=== PATIENT | male | born 1970 | race Two or more races ===

== ENCOUNTER 2016-11-08 06:28 | Emergency (ER) | payer OTHER ==
[2016-11-08 06:38] VITALS: BP 116/81; PULSE 84; TEMP 99.8
--- NOTE | 2016-11-08 07:36 | PDOC ---
History of Present Illness <ShivferminjosueRamu - Last Filed: 11/08/16 07:35> - General History Source: Patient Exam Limitations: No Limitations - History of Present Illness Initial Comments: 11/08/16 07:40 The patient is a 46-year-old man, accompanied by spouse, with no significant past medical history who presents to the emergency department via walk-in for further evaluation of persistent cold-like symptoms for the past 2-3 days. Patient reports that he has experienced an intermittent cough with associated nasal congestion and a headache. No fever, chills generalized weakness. No rhinorrhea, ear pain. No shortness of breath, palpitations, headache. No abdominal pain, nausea, vomiting, diarrhea. <Sandra Alvarado - Last Filed: 11/08/16 08:06> - General Chief Complaint: Cold Symptoms Stated Complaint: WEAKNESS Past History - Past Medical History Other medical history: denies - Immunization History Immunization Up to Date: Yes - Psycho/Social/Smoking Cessation Hx Anxiety: No Suicidal Ideation: No Smoking History: Never smoked Have you smoked in the past 12 months: No Number of Cigarettes Smoked Daily: 0 Cigars Per Day: 0 Information on smoking cessation initiated: No Hx Alcohol Use: No Drug/Substance Use Hx: No Substance Use Type: Alcohol <Ramu Francis - Last Filed: 11/08/16 07:35> <Sandra Alvarado - Last Filed: 11/08/16 08:06> - Past Medical History Allergies/Adverse Reactions: Allergies Allergy/AdvReac Type Severity Reaction Status Date / Time No Known Allergies Allergy Verified 01/31/16 07:31 Home Medications: Ambulatory Orders Ibuprofen [Motrin -] 600 mg PO QID #28 tablet 01/31/16 Oxycodone HCl/Acetaminophen [Percocet 5-325 mg Tablet] 1 - 2 tab PO Q6H PRN #20 tablet MDD 8 01/31/16 Amoxicillin - [Amoxicillin 875mg Tablet -] 875 mg PO BID #30 tablet 11/08/16 Review of Systems - Review of Systems Able to Perform ROS?: Yes Comments:: 11/08/16 07:41 GENERAL/CONSTITUTIONAL: No fever or chills. No weakness. HEAD, EYES, EARS, NOSE AND THROAT: Yes: +Nasal congestion. No change in vision. No ear pain or discharge. No sore throat. CARDIOVASCULAR: No chest pain or shortness of breath. RESPIRATORY: No cough, wheezing, or hemoptysis. GASTROINTESTINAL: No nausea, vomiting, diarrhea or constipation. GENITOURINARY: No dysuria, frequency, or change in urination. MUSCULOSKELETAL: No joint or muscle swelling or pain. No neck or back pain. SKIN: No rash NEUROLOGIC: Yes: +Headache. No vertigo, loss of consciousness, or change in strength/sensation. ENDOCRINE: No increased thirst. No abnormal weight change. HEMATOLOGIC/LYMPHATIC: No anemia, easy bleeding, or history of blood clots. ALLERGIC/IMMUNOLOGIC: No hives or skin allergy. <Sandra Alvarado - Last Filed: 11/08/16 08:06> *Physical Exam - Vital Signs Last Vital Signs Temp Pulse Resp BP Pulse Ox 99.8 F H 84 20 116/81 98 11/08/16 06:35 11/08/16 06:35 11/08/16 06:35 11/08/16 06:35 11/08/16 06:35 <Ramu Franics - Last Filed: 11/08/16 07:35> - Vital Signs Last Vital Signs Temp Pulse Resp BP Pulse Ox 99.8 F H 84 20 116/81 98 11/08/16 06:35 11/08/16 06:35 11/08/16 06:35 11/08/16 06:35 11/08/16 06:35 - Physical Exam Comments: 11/08/16 07:42 GENERAL: Awake, alert, and fully oriented, in no acute distress HEAD: No signs of trauma EYES: PERRLA, EOMI, sclera anicteric, conjunctiva clear ENT: Auricles normal inspection, hearing grossly normal, post nasal drip, oropharynx clear without exudates. Moist mucosa NECK: Normal ROM, supple, no lymphadenopathy, JVD, or masses LUNGS: Breath sounds equal, clear to auscultation bilaterally. No wheezes, and no crackles HEART: Regular rate and rhythm, normal S1 and S2, no murmurs, rubs or gallops ABDOMEN: Soft, nontender, normoactive bowel sounds. No guarding, no rebound. No masses EXTREMITIES: Normal range of motion, no edema. No clubbing or cyanosis. No cords, erythema, or tenderness NEUROLOGICAL: Cranial nerves II through XII grossly intact. Normal speech <Sandra Alvarado - Last Filed: 11/08/16 08:06> *DC/Admit/Observation/Transfer <Ramu Francis - Last Filed: 11/08/16 07:35> - Attestations Scribe Attestion: 11/08/16 07:42 Documentation prepared by Snadra Alvarado, acting as durable medical equipment technician for Ramu Francis MD. <Sandra Alvarado - Last Filed: 11/08/16 08:06> Diagnosis at time of Disposition: Acute sinusitis - Discharge Dispostion Disposition: HOME Condition at time of disposition: Good - Prescriptions Prescriptions: Amoxicillin - [Amoxicillin 875mg Tablet -] 875 mg PO BID #30 tablet - Patient Instructions Printed Discharge Instructions: DI for Sinusitis Additional Instructions: no smoking
== END 2016-11-08 07:54 | disposition home or self-care (01) ==
LOC: JER 06:28
DX: J01.90 Acute sinusitis, unspecified (principal)
CPT/HCPCS: 99282-25

== ENCOUNTER 2017-02-12 14:10 | Emergency (ER) | payer OTHER ==
[2017-02-12 14:24] VITALS: BP 127/75; BMI 27.3
[2017-02-12] MEDS ORDERED: FAMOTIDINE 20 MG/50 ML IVPB 50 ML IVPB ONE ×2 (15:09→15:18)
[2017-02-12] MEDS ORDERED: SODIUM CHLORIDE 1,000 ML IV STA ×2 (15:09→17:08)
[2017-02-12] MEDS ORDERED: ONDANSETRON 4 MG/2 ML VIAL IVPB ONE (15:09)
[2017-02-12] MEDS ORDERED: ONDANSETRON 4 MG/2 ML VIAL ONE (15:18)
[2017-02-12 15:40] LABS: BASOPHIL 0.4 % (0-2.0); EOSINOPHIL 0.3 % (0-4.5); MCH 30.7 pg (25.7-33.7); MCHC 34.8 g/dl (32.0-35.9); MEAN CELL VOLUME 88.2 fl (80-96); MEAN PLT VOLUME 8.5 fl (7.5-11.1); NEUTROPHILS 77.8 % (42.8-82.8); PLATELET COUNT 173 K/MM3 (134-434); RDW 12.2 % (11.9-15.9); WHITE BLOOD COUNT 10.3 K/mm3 (4.0-10.0)
[2017-02-12 16:07] LABS: ALBUMIN 3.5 g/dl (3.4-5.0); ALK PHOS 110 U/L (45-117); ANION GAP 10 (8-16); BILIRUBIN,TOTAL 1.2 mg/dL (0.2-1.0); CALCIUM 8.5 mg/dL (8.5-10.1); CO2 24 mmol/L (21-32); COCKROFT - GAULT 128.16; CREATININE 0.8 mg/dL (0.7-1.3); GLUCOSE,RANDOM 132 mg/dL (74-106); SGOT/AST 36 U/L (15-37); SGPT/ALT 74 U/L (12-78); TOT PROT 7.9 g/dl (6.4-8.2)
--- NOTE | 2017-02-12 17:13 | PDOC ---
History of Present Illness <Neelam Kc - Last Filed: 02/12/17 21:49> - General History Source: Patient Exam Limitations: No Limitations - History of Present Illness Travel History: No Initial Comments: 02/12/17 17:06 46 yr male with 2 days fever, diarrhea body aches. no vomiting. Pt with no sick contacts. Pt works at [employer] <Sue Morse - Last Filed: 02/13/17 07:29> - General Chief Complaint: Diarrhea Stated Complaint: WEANKNESS Time Seen by Provider: 02/12/17 14:46 Past History <Neelam Kc - Last Filed: 02/12/17 21:49> - Past Medical History Other medical history: sinus infection - Family Disease History Comment:: 02/12/17 17:08 none relevant - Immunization History Immunization Up to Date: Yes - Psycho/Social/Smoking Cessation Hx Anxiety: No Suicidal Ideation: No Smoking History: Never smoked Have you smoked in the past 12 months: No Number of Cigarettes Smoked Daily: 0 Cigars Per Day: 0 Information on smoking cessation initiated: No Hx Alcohol Use: No Drug/Substance Use Hx: No Substance Use Type: Alcohol <Sue Morse - Last Filed: 02/13/17 07:29> - Past Medical History Allergies/Adverse Reactions: Allergies Allergy/AdvReac Type Severity Reaction Status Date / Time No Known Allergies Allergy Verified 02/12/17 14:21 Home Medications: Ambulatory Orders Ciprofloxacin [Cipro (Restricted To Id)] 500 mg PO BID #14 tablet 02/12/17 Metronidazole [Flagyl -] 250 mg PO TID #21 tablet 02/12/17 Abd/GI Specific PMHX - Complaint Specific PMHX Colitis: No Diverticulitis: No Gall Bladder Disease: No GERD: No Hepatitis: No Irritable Bowel Synd (IBS): No Pancreatitis: No GI Ulcer Disease: No <Sue Morse - Last Filed: 02/13/17 07:29> Review of Systems - Review of Systems Able to Perform ROS?: Yes Is the patient limited French proficient: No Constitutional: Yes: Symptoms Reported, Fever, Malaise, Weakness HEENTM: No: Symptoms Reported Respiratory: No: Symptoms reported Cardiac (ROS): No: Symptoms Reported ABD/GI: No: Symptoms Reported <Sue Morse - Last Filed: 02/13/17 07:29> *Physical Exam - Vital Signs Last Vital Signs Temp Pulse Resp BP Pulse Ox 99.0 F 91 H 18 127/75 99 02/12/17 21:36 02/12/17 21:36 02/12/17 14:22 02/12/17 14:22 02/12/17 21:36 <Neelam Kc - Last Filed: 02/12/17 21:49> - Vital Signs Last Vital Signs Temp Pulse Resp BP Pulse Ox 98.8 F 100 H 18 127/75 100 02/12/17 14:22 02/12/17 14:22 02/12/17 14:22 02/12/17 14:22 02/12/17 14:22 - Physical Exam General Appearance: Yes: Nourished, Appropriately Dressed, Mild Distress HEENT: positive: EOMI, ISA, Normal ENT Inspection, TMs Normal, Pharynx Normal Neck: positive: Supple. negative: Tender Respiratory/Chest: positive: Lungs Clear, Normal Breath Sounds. negative: Chest Tender Cardiovascular: positive: Regular Rhythm, Regular Rate Gastrointestinal/Abdominal: positive: Tender (generalised ) Male Genitalia: positive: normal genitalia. negative: discharge Rectal Exam: positive: normal rectal tone. negative: melena, hemorrhoids Musculoskeletal: positive: Normal Inspection Extremity: positive: Normal Capillary Refill, Normal Inspection, Normal Range of Motion Integumentary: positive: Normal Color, Dry, Warm Neurologic: positive: Fully Oriented, Alert, Normal Mood/Affect, Normal Response , Motor Strength 5/5 <Sue Morse - Last Filed: 02/13/17 07:29> ED Treatment Course - LABORATORY CBC & Chemistry Diagram: 02/12/17 15:10 02/12/17 15:10 - ADDITIONAL ORDERS Additional order review: Laboratory Results 02/12/17 15:10 Sodium 136 Potassium 3.9 Chloride 102 Carbon Dioxide 24 Anion Gap 10 BUN 9 Creatinine 0.8 Creat Clearance w eGFR > 60 Random Glucose 132 H Calcium 8.5 Total Bilirubin 1.2 H AST 36 ALT 74 Alkaline Phosphatase 110 Total Protein 7.9 Albumin 3.5 02/12/17 15:05 Influenza Types A,B Antigen (PATRICIA) - Final Nasopharyngeal Swab - Final 02/12/17 15:10 RBC 5.23 MCV 88.2 MCHC 34.8 RDW 12.2 MPV 8.5 Neutrophils % 77.8 Lymphocytes % 14.4 Monocytes % 7.1 Eosinophils % 0.3 Basophils % 0.4 - Medications Given in the ED: ED Medications Discontinued Medications Generic Name Dose Route Start Last Admin Trade Name Freq PRN Reason Stop Dose Admin Sodium Chloride 1,000 mls @ 1,000 mls/hr 02/12/17 15:09 02/12/17 15:30 Normal Saline - IV 02/12/17 16:08 1,000 mls/hr ASDIR STA Administration Famotidine/Sodium Chloride 50 mls @ 100 mls/hr 02/12/17 15:09 02/12/17 15:41 Pepcid 20 Mg Premixed Ivpb - IVPB 02/12/17 15:38 100 mls/hr ONCE ONE Administration Sodium Chloride 1,000 mls @ 1,000 mls/hr 02/12/17 17:08 02/12/17 17:15 Normal Saline - IV 02/12/17 18:07 1,000 mls/hr ASDIR STA Administration Ondansetron HCl 4 mg 02/12/17 15:09 02/12/17 15:30 Zofran Injection IVPB 02/12/17 15:10 4 mg ONCE ONE Administration <Neelam Kc - Last Filed: 02/12/17 21:49> - LABORATORY CBC & Chemistry Diagram: 02/12/17 15:10 02/12/17 15:10 - ADDITIONAL ORDERS Additional order review: Laboratory Results 02/12/17 15:10 Sodium 136 Potassium 3.9 Chloride 102 Carbon Dioxide 24 Anion Gap 10 BUN 9 Creatinine 0.8 Creat Clearance w eGFR > 60 Random Glucose 132 H Calcium 8.5 Total Bilirubin 1.2 H AST 36 ALT 74 Alkaline Phosphatase 110 Total Protein 7.9 Albumin 3.5 02/12/17 15:05 Influenza Types A,B Antigen (PATRICIA) - Final Nasopharyngeal Swab - Final 02/12/17 15:10 RBC 5.23 MCV 88.2 MCHC 34.8 RDW 12.2 MPV 8.5 Neutrophils % 77.8 Lymphocytes % 14.4 Monocytes % 7.1 Eosinophils % 0.3 Basophils % 0.4 - Medications Given in the ED: ED Medications Discontinued Medications Generic Name Dose Route Start Last Admin Trade Name Freq PRN Reason Stop Dose Admin Sodium Chloride 1,000 mls @ 1,000 mls/hr 02/12/17 15:09 02/12/17 15:30 Normal Saline - IV 02/12/17 16:08 1,000 mls/hr ASDIR STA Administration Famotidine/Sodium Chloride 50 mls @ 100 mls/hr 02/12/17 15:09 02/12/17 15:41 Pepcid 20 Mg Premixed Ivpb - IVPB 02/12/17 15:38 100 mls/hr ONCE ONE Administration Ondansetron HCl 4 mg 02/12/17 15:09 02/12/17 15:30 Zofran Injection IVPB 02/12/17 15:10 4 mg ONCE ONE Administration <Sue Morse - Last Filed: 02/13/17 07:29> Medical Decision Making - Medical Decision Making 02/12/17 18:45 cc: diarrhea, body aches fatigue, abd pain no vomiting , tender to left lower quadrant will check labs, IVF, ct abd and pelvis r/o diveriticulitus, colitis, IBS, appendicitis 02/12/17 19:13 pt feels better after fluids ct is pending 02/12/17 19:58 signed out to Neelam Kc LITERACY COORDINATOR for continued care . Ct pending results. pt stable at this time. 02/13/17 07:28 <Sue Morse - Last Filed: 02/13/17 07:29> *DC/Admit/Observation/Transfer - Discharge Dispostion Admit: No <Neelam Kc - Last Filed: 02/12/17 21:49> <Sue Morse - Last Filed: 02/13/17 07:29> Diagnosis at time of Disposition: Colitis - Discharge Dispostion Disposition: HOME Condition at time of disposition: Stable - Prescriptions Prescriptions: Ciprofloxacin [Cipro (Restricted To Id)] 500 mg PO BID #14 tablet Metronidazole [Flagyl -] 250 mg PO TID #21 tablet - Referrals Referrals: Crow Rhodes MD [Staff Physician] - - Patient Instructions Printed Discharge Instructions: DI for Colitis Additional Instructions: clear fluids , jello, ice pops, broth Spicy or heavy foods until instructed otherwise then slowly tolerate to dry crackers, dry toast , dry cereal Cipro 500 mg tablets twice a day for one week Continue Flagyl 250 mg tablet 3 times a day for one week follow with the pot washer for follow up next week Return to emergency department for worsened pain, fevers, bloating or problems otherwise call for appointment with - Post Discharge Activity Work/School Note: Back to Work
[2017-02-12 21:38] VITALS: PULSE 91; TEMP 99
== END 2017-02-12 21:54 | disposition home or self-care (01) ==
LOC: JER 14:10 → JERFT 14:10
PROC: 3E0337Z Introduction of Electrolytic and Water Balance Substance into Peripheral Vein, Percutaneous Approach (ICD-10-PCS; principal; 2017-02-12)
PROC: 3E033GC Introduction of Other Therapeutic Substance into Peripheral Vein, Percutaneous Approach (ICD-10-PCS; 2017-02-12)
DX: K52.9 Noninfective gastroenteritis and colitis, unspecified (principal)
CPT/HCPCS: 36415; 74177-TC; 80053; 85025; 87804; 96361; 96365; 96375; 99281-25

== ENCOUNTER 2017-10-21 21:11 | Emergency (ER) | payer OTHER ==
[2017-10-21] MEDS ORDERED: IBUPROFEN 600 MG TABLET (FP) PO ONE ×2 (21:24→22:50)
--- NOTE | 2017-10-21 21:24 | PDOC ---
Rapid Medical Evaluation Chief Complaint: Headache Medical Evaluation: Allergies Allergy/AdvReac Type Severity Reaction Status Date / Time No Known Allergies Allergy Verified 02/12/17 14:21 10/21/17 21:21 I have performed a brief in-person evaluation of this patient. The patient presents with a chief complaint of: "sinus pain" since yesterday, + chills, vomiting, diarrhea, PCP [place] Pertinent physical exam findings: congestion, temp 100.1 I have ordered the following: flu swab The patient will proceed to the ED for further evaluation.
[2017-10-21 21:25] VITALS: BP 136/81; PULSE 91; TEMP 100.1; BMI 29.7
--- NOTE | 2017-10-21 22:49 | PDOC ---
History of Present Illness - General Chief Complaint: Headache Stated Complaint: HEADACHE Time Seen by Provider: 10/21/17 21:25 - History of Present Illness Initial Comments: 10/21/17 23:07 47yo man with no significant PMH who presents with 1 day of sinus pressure, RANDLE, and subjective fevers. Patient had subjective fevers starting last night for which he took Advil and Theraflu this morning. He reports history of sinus infection, last one occurring about 1 year ago. Last antibiotic use was 1 year ago. Denies any vision changes, nausea, vomiting. Reports son was sick with URI symptoms about 1 week ago. No recent travel. No allergies to medications. No past surgeries. Past History - Past Medical History Allergies/Adverse Reactions: Allergies Allergy/AdvReac Type Severity Reaction Status Date / Time No Known Allergies Allergy Verified 10/21/17 21:25 Home Medications: Ambulatory Orders Ciprofloxacin [Cipro (Restricted To Id)] 500 mg PO BID #14 tablet 02/12/17 Metronidazole [Flagyl -] 250 mg PO TID #21 tablet 02/12/17 Azithromycin 250 mg PO DAILY #4 tablet 10/21/17 COPD: No - Immunization History Immunization Up to Date: Yes - Suicide/Smoking/Psychosocial Hx Smoking History: Never smoked Have you smoked in the past 12 months: No Number of Cigarettes Smoked Daily: 0 Cigars Per Day: 0 Information on smoking cessation initiated: No Hx Alcohol Use: No Drug/Substance Use Hx: No Substance Use Type: None *Physical Exam - Vital Signs Last Vital Signs Temp Pulse Resp BP Pulse Ox 100.1 F H 91 H 18 136/81 98 10/21/17 21:22 10/21/17 21:22 10/21/17 21:22 10/21/17 21:22 10/21/17 21:22 - Physical Exam General Appearance: Yes: Nourished, Appropriately Dressed HEENT: positive: EOMI, ISA, TMs Normal, Pharyngeal Erythema (mild), Sinus Tenderness (frontal) Neck: positive: Supple. negative: Lymphadenopathy (R), Lymphadenopathy (L) Respiratory/Chest: positive: Lungs Clear, Normal Breath Sounds Cardiovascular: positive: Regular Rhythm, Regular Rate, S1, S2 Gastrointestinal/Abdominal: positive: Flat, Soft. negative: Distended, Guarding , Tenderness Extremity: positive: Normal Inspection Neurologic: positive: windows support engineer II-XII NML intact, Fully Oriented, Alert ED Treatment Course - ADDITIONAL ORDERS Additional order review: 10/21/17 21:31 Influenza Types A,B Antigen (PATRICIA) - Final Nasopharyngeal Swab - Final Medical Decision Making - Medical Decision Making 10/21/17 23:17 47yo man with PMH of recurrent sinus infections (last 1 year ago) who presents with symptoms c/w rhinosinusitis. Patient is febrile to 100.8. Will give Motrin for RANDLE, Tylenol for fever, and will start a Z-pack. 10/22/17 00:03 Patient reports RANDLE has improved. Vital signs are stable, and patient can be discharged home. He was instructed to complete his Z pack and follow-up with his primary care physician. *DC/Admit/Observation/Transfer Diagnosis at time of Disposition: discharged, Sinusitis - Discharge Dispostion Disposition: HOME - Prescriptions Prescriptions: Azithromycin 250 mg PO DAILY #4 tablet - Referrals Referrals: John Hoyt MD [Primary Care Provider] - - Patient Instructions Printed Discharge Instructions: DI for Sinusitis Additional Instructions: You have a sinus infection. Please make an appointment with your primary care physician within 1-2 weeks for follow-up. Take 1 tablet of Azithromycin (an antibiotic) every day for the next 4 days. Your first dose will be tomorrow. You can use salt-water nose sprays or a neti pot to help loosen the mucus. You can also try sitting in warm shower or place warm compresses around your nose and sinuses. You can take Tylenol for your fever. Please return to the Emergency Department if you have a fever, chills, vision changes, nausea, vomiting, or new, worsening, or concerning symptoms. - Post Discharge Activity
--- NOTE | 2017-10-21 23:09 | PDOC ---
Attending Attestation - Resident Resident Name: Carmen Ledezma - ED Attending Attestation I have performed the following: I have examined & evaluated the patient, The case was reviewed & discussed with the resident, I agree w/resident's findings & plan, Exceptions are as noted <Arnoldo Sanchez - Last Filed: 10/21/17 23:08> - HPI HPI: 10/21/17 23:13 The patient is a 47 year old male, with no significant past medical history, who presents to the emergency department with fever, headache, and nasal congestion for approximately 1 day. The patient reports a subjective fever, sinus pressure, nasal congestion and a headache since yesterday. Patient reports taking Advil last night and Theraflu this morning with no relief of symptoms. He denies any chills, cough, sore throat, or dizziness. He denies any chest pain, shortness of breath, diaphoresis, or palpitations. Patient reports a history of sinus infections, his last one being a year ago. He denies any recent travel or sick contacts. Allergies: NKDA Past Surgical History: None reported Social History: Non smoker. No ETOH or recreational drug use. - Physicial Exam PE: 10/21/17 23:14 GENERAL: Well-appearing, well-nourished. No apparent distress. TMax 100.1F HEENT: Mild posterior oropharynx erythema. Tenderness over frontal sinuses. Normocephalic, atraumatic. PERRL, EOM intact. s normal CARDIOVASCULAR: Normal S1, S2. Regular rate and rhythm. PULMONARY: Clear to auscultation bilaterally. ABDOMEN: Soft, non-distended, non-tender. EXTREMITIES: Normal ROM in all four extremities. No gross deformities. SKIN: Warm, dry. No rash NEUROLOGICAL: No focal neurological deficits. - Medical Decision Making 10/21/17 23:14 Documentation prepared by Lori Moss, acting as medical billing clerk for Arnoldo Sanchez DO. <oLri Moss - Last Filed: 10/21/17 23:14>
[2017-10-21] MEDS ORDERED: ACETAMINOPHEN 325 MG TABLET (FP) PO ONE (23:22)
[2017-10-21] MEDS ORDERED: AZITHROMYCIN 250 MG TABLET PO ONE (23:22)
[2017-10-21] MEDS ORDERED: AZITHROMYCIN 250 MG TABLET ONE (23:40)
[2017-10-21] MEDS ORDERED: ACETAMINOPHEN 325 MG TABLET (FP) ONE (23:40)
== END 2017-10-22 00:59 | disposition home or self-care (01) ==
LOC: JERFT 21:11 → JER 21:11
DX: J01.90 Acute sinusitis, unspecified (principal)
CPT/HCPCS: 87804; 99282-25

== ENCOUNTER 2018-06-05 14:56 | Observation (INO) | payer OTHER ==
[2018-06-05 15:49] VITALS: BMI 29.0
--- NOTE | 2018-06-05 16:01 | PDOC ---
History of Present Illness - General Chief Complaint: Lightheaded Stated Complaint: Weakness Time Seen by Provider: 06/05/18 16:01 History Source: Patient, Family - History of Present Illness Initial Comments: 06/05/18 16:20 47 year old male with no past medical history presents to ED complaining of dizziness, headache, increased urination, blurry vision, tingling and weakness in all extremities, neck pain x3 days. He states his headache is located to his forehead, started strong, and has progressed in severity. He states he has a history of headaches, but that this one is more severe. Denies fever, chills, nausea, vomiting, diarrhea, abdominal pain, chest pain, shortness of breath, cough. PCP - Dr. John Hoyt Past History - Past Medical History Allergies/Adverse Reactions: Allergies Allergy/AdvReac Type Severity Reaction Status Date / Time No Known Allergies Allergy Verified 06/05/18 15:49 Home Medications: Ambulatory Orders NK [No Known Home Medication] 06/05/18 COPD: No Other medical history: sinus - Immunization History Immunization Up to Date: Yes - Suicide/Smoking/Psychosocial Hx Smoking History: Never smoked Have you smoked in the past 12 months: No Number of Cigarettes Smoked Daily: 0 Cigars Per Day: 0 Hx Alcohol Use: No Drug/Substance Use Hx: No Substance Use Type: None Review of Systems - Review of Systems Able to Perform ROS?: Yes Comments:: 06/05/18 16:21 General: denies fever, chills, night sweats, generalized weakness. HEENT: denies sore throat, rhinorrhea, ear pain. Heart: denies chest pain, palpitations, syncope, lower extremity swelling. Respiratory: denies shortness of breath, cough, sputum production, hematemesis. Abdomen: denies abdominal pain, nausea, vomiting, diarrhea, constipation, blood in stool. : admits to increased urination. denies dysuria, hematuria, urinary incontinence. Back: denies back pain, flank pain. Musculoskeletal: admits to extremity pain. Neurological: admits to headache, dizziness, weakness. denies numbness, tingling. Skin: denies rash, laceration, abrasion. *Physical Exam - Vital Signs Last Vital Signs Temp Pulse Resp BP Pulse Ox 98.4 F 88 18 128/75 99 06/05/18 15:46 06/05/18 15:46 06/05/18 15:46 06/05/18 15:46 06/05/18 15:46 - Physical Exam Comments: 06/05/18 16:23 Appearance: comfortable. HEENT: head is normocephalic, atraumatic. EOMI. PERRLA. Neck: supple. Full ROM. no nuchal rigidity. Heart: regular rhythm. no murmurs, rubs or gallops. Lungs: clear to auscultation bilaterally. no crackles, rhonchi or wheezing. no stridor. Abdomen: soft, nontender. normal bowel sounds. no rebound, guarding, masses. Back: no CVA tenderness. Extremities: Peripheral pulses intact. No lower extremity edema. Neurological: Alert. Oriented x3. CN2-12 intact. 5/5 strength all extremities. Full sensation all extremities and bilateral face. Romberg negative. Finger to nose normal. Gait normal. Walks unassisted. ED Treatment Course - LABORATORY CBC & Chemistry Diagram: 06/05/18 17:10 06/06/18 08:44 Medical Decision Making - Medical Decision Making 06/05/18 16:23 47 year old male with no PMH complaining of dizziness, headache, blurry vision, increased urination, neck pain, all four extremity pain and weakness. Full strength, neurologically intact, normal gait, walks unassisted. Initial Vital Signs Temp Pulse Resp BP Pulse Ox 98.4 F 88 18 128/75 99 06/05/18 15:46 06/05/18 15:46 06/05/18 15:46 06/05/18 15:46 06/05/18 15:46 Afebrile. No tachycardia. No bradycardia. No hypertension. No hypotension. Pending labs, UA, head CT. Meclizine and IV fluids given for dizziness. 06/05/18 18:09 Glucose 305 No leukocytosis 06/05/18 18:46 CT head negative. I explained via field inspector ([id number]) the risks of not identifying a subarachnoid hemorrhage and the risks of a lumbar puncture, including infection , bleeding, damage to surrounding structures and pain. He agrees to have the lumbar puncture performed. 06/05/18 19:54 Lumbar puncture attempted by myself, Dr. Stephens and Dr. Joseph. No CSF was obtained. Paging Dr. Lucas 06/06/18 09:55 I discussed the case with Dr. Monreal and Dr. Le, who will take over care for the patient. *DC/Admit/Observation/Transfer Diagnosis at time of Disposition: Headache - Discharge Dispostion Disposition: HOME Condition at time of disposition: Stable - Referrals - Patient Instructions - Post Discharge Activity
[2018-06-05] MEDS ORDERED: MECLIZINE HCL 25 MG TABLET (FP) PO ONE (16:18)
[2018-06-05] MEDS ORDERED: SODIUM CHLORIDE 1,000 ML IV STA ×2 (16:25→18:22)
[2018-06-05] MEDS ORDERED: METOCLOPRAMIDE HCL INJECTION 10 MG/2 ML VIAL IVPUSH ONE (16:43)
[2018-06-05] MEDS ORDERED: ACETAMINOPHEN 1000 MG/100 ML VIAL (NON FORMULARY) IVPB ONE (16:46)
[2018-06-05 17:15] LABS: HEMATOCRIT 38.7 % (35.4-49); HEMOGLOBIN 13.6 GM/dL (11.7-16.9); MCH 30.9 pg (25.7-33.7); MCHC 35.1 g/dl (32.0-35.9); MEAN CELL VOLUME 88.1 fl (80-96); MEAN PLT VOLUME 8.5 fl (7.5-11.1); PLATELET COUNT 174 K/MM3 (134-434); RBC 4.39 M/mm3 (4.00-5.60); RDW 12.4 % (11.9-15.9); WHITE BLOOD COUNT 8.4 K/mm3 (4.0-10.0)
[2018-06-05] MEDS ORDERED: MECLIZINE HCL 25 MG TABLET (FP) ONE (17:25)
[2018-06-05] MEDS ORDERED: ACETAMINOPHEN INJECTION 100 ML IVPB ONE (17:25)
[2018-06-05 17:43] LABS: ALBUMIN 3.2 g/dl (3.4-5.0); ANION GAP 8 (8-16); BILIRUBIN,TOTAL 0.6 mg/dL (0.2-1.0); BLOOD UREA NITROGEN 15 mg/dL (7-18); CALCIUM 8.3 mg/dL (8.5-10.1); CHLORIDE 105 mmol/L (98-107); CO2 26 mmol/L (21-32); CREATININE 1.2 mg/dL (0.7-1.3); POTASSIUM 4.1 mmol/L (3.5-5.1); SGOT/AST 61 U/L (15-37); SGPT/ALT 144 U/L (12-78); SODIUM 139 mmol/L (136-145); TOT PROT 7.2 g/dl (6.4-8.2)
[2018-06-05 17:46] LABS: ALK PHOS 154 U/L (45-117)
[2018-06-05 17:47] LABS: URINE APPEARANCE CLEAR; URINE BILIRUBIN NEGATIVE (<2.0 mg/dL); URINE COLOR STRAW; URINE GLUCOSE (UA) 3+ (NEGATIVE); URINE KETONE NEGATIVE (NEGATIVE); URINE LEUK ESTERASE NEGATIVE (NEGATIVE); URINE NITRITE NEGATIVE (NEGATIVE); URINE PROTEIN NEGATIVE (NEGATIVE); URINE UROBILINOGEN NEGATIVE mg/dL (0.2-1.0)
[2018-06-05 17:47] LABS: GLUCOSE,RANDOM 305 mg/dL (74-106)
--- NOTE | 2018-06-05 18:31 | PDOC ---
Attending Attestation - Resident Resident Name: Haven López - ED Attending Attestation I have performed the following: I have examined & evaluated the patient, The case was reviewed & discussed with the resident, I agree w/resident's findings & plan, Exceptions are as noted - HPI HPI: 06/05/18 18:29 Patient is a 47 year old male with no significant past medical history who presents to the ED with complaints of sudden onset headache that began yesterday while at [employer]. Patient reports going to eat with his daughters when he began to experience sudden onset of frontal head pain. He reports frontal head pain is a pressured pain that has gradually increased in intensity over time, stating it is currently at a 10/10 in intensity. He reports experiencing associated symptoms of dizziness, blurred vision, photophobia, bilateral arm and hand numbness and tingling and neck pain. He states that he gets headaches, but this is the worse headache of his life. Patient's states after returning home from the restaurant yesterday, he slept all day, all night. Also reports photophobia. Patient reports his last meal was this morning at 11am. Denies chest pain, Sob. Denies nausea, vomiting. Denies contact with sick individuals, out of state travelling. Denies head trauma. Denies fevers,chills. Denies any other symptoms. Allergies: None Social history: No smoking. No alcohol. No illicit drugs. Surgical history: None PMD: Dr. John Hoyt - Physicial Exam PE: 06/05/18 18:28 GENERAL: Awake, alert, and fully oriented, appears uncomfortable but in no acute distress HEAD: No signs of trauma EYES: PERRLA, EOMI, sclera anicteric, conjunctiva clear ENT: Auricles normal inspection, hearing grossly normal, nares patent, oropharynx clear without exudates. Moist mucosa NECK: Normal ROM, supple, no lymphadenopathy, JVD, or masses LUNGS: Breath sounds equal, clear to auscultation bilaterally. No wheezes, and no crackles HEART: Regular rate and rhythm, normal S1 and S2, no murmurs, rubs or gallops ABDOMEN: Soft, nontender, normoactive bowel sounds. No guarding, no rebound. No masses EXTREMITIES: Normal range of motion, no edema. No clubbing or cyanosis. No cords, erythema, or tenderness NEUROLOGICAL: Normal speech, cranial nerves intact, negative pronator drift, 5/ 5 strength in all 4 extremities, normal sensation to light touch in all 4 extremities, normal cerebellar exam, normal gait, normal reflexes and tone SKIN: Warm, Dry, normal turgor, no rashes or lesions noted. - Medical Decision Making 06/05/18 18:25 47-year-old male who denies past medical history presents emergency Department with sudden onset headache yesterday that he declines is his worst headache of life. He also reports room spinning dizziness as well as generalized weakness and blurry vision. CT head is negative for hemorrhage. We'll need to do a lumbar puncture to rule out subarachnoid hemorrhage. In addition, the patient's glucose is elevated to the 300s consistent with diabetes which may explain his polyuria, generalized weakness. LP procedure has been explained to patient, including risks. Pt consents to procedure, consent form signed. WIll obtain LP and likely admit to observation. 06/05/18 19:55 Despite multiple attempts, LP was unsuccessful as we kept hitting bone. Will order CTA. Call placed for neuro c/s awaiting a call back. Case signed out to overnight attending for further mgmt/dispo. <Eron Joseph - Last Filed: 06/05/18 19:55> - Medical Decision Making 06/05/18 23:26 Referring Physician: RENA WEBB Patient Name: SIMON SMITH THIS IS A PRELIMINARY REPORT FROM [facility] DATE OF SERVICE: 2018-06-05 20:53:03 IMAGES: [id number] EXAM: CTA brain with contrast HISTORY: Evaluate for aneurysm COMPARISON: CT head from today FINDINGS: The [place] arteries are patent. There is no cerebral arterial occlusion or high-grade stenosis. There is no aneurysm identified. No evidence of arteriovenous malformation. Visualized portions of the sagittal sinus and transverse sinuses patent. Individualized dose optimization techniques were used for this CT. THIS DOCUMENT HAS BEEN ELECTRONICALLY SIGNED 06/05/18 23:56 Patient Name: SIMON SMITH THIS IS A PRELIMINARY REPORT FROM [facility] DATE OF SERVICE: 2018-06-05 21:30:26 IMAGES: [id number] EXAM: Abdominal ultrasound Limited REASON FOR EXAM: Abnormal LFTs COMPARISON: None FINDINGS: Hepatic parenchyma is mildly echogenic suggesting possible mild fatty change in the liver. Liver measures 17.4 cm in length. There are no obvious gallstones. Gallbladder wall is normal in thickness. Common bile duct diameter within normal limits. Visualized pancreas is unremarkable. Pancreatic tail is obscured. There is no hydronephrosis on the right. THIS DOCUMENT HAS BEEN ELECTRONICALLY SIGNED <Katheryn Le - Last Filed: 06/05/18 23:56>
[2018-06-05] MEDS ORDERED: LIDOCAINE HCL 1%, 10 MG/ML (20ML VIAL) ONE (19:21)
--- NOTE | 2018-06-05 20:52 | PDOC ---
*Physical Exam - Vital Signs Last Vital Signs Temp Pulse Resp BP Pulse Ox 98.4 F 66 20 126/70 98 06/05/18 15:46 06/05/18 20:19 06/05/18 20:19 06/05/18 20:19 06/05/18 20:19 - Physical Exam Comments: 06/05/18 21:39 GENERAL: Awake, alert, and fully oriented, in no acute distress HEAD: No signs of trauma, normocephalic, atraumatic EYES: PERRLA, EOMI, sclera anicteric, conjunctiva clear ENT: Auricles normal inspection, hearing grossly normal, nares patent, oropharynx clear without exudates. Moist mucosa NECK: Normal ROM, supple, no lymphadenopathy, JVD, or masses EXTREMITIES: Normal inspection, Normal range of motion, no edema. No clubbing or cyanosis. NEUROLOGICAL: Cranial nerves II through XII grossly intact. Normal speech, no focal sensorimotor deficits SKIN: Warm, Dry, normal turgor, no rashes or lesions noted. ED Treatment Course - LABORATORY CBC & Chemistry Diagram: 06/05/18 17:10 06/05/18 17:10 - ADDITIONAL ORDERS Additional order review: Laboratory Results 06/05/18 06/05/18 17:36 17:10 Sodium 139 Potassium 4.1 Chloride 105 Carbon Dioxide 26 Anion Gap 8 BUN 15 Creatinine 1.2 Creat Clearance w eGFR > 60 Random Glucose 305 H* D Calcium 8.3 L Total Bilirubin 0.6 AST 61 H D ALT 144 H D Alkaline Phosphatase 154 H Creatine Kinase 77 Troponin I < 0.02 Total Protein 7.2 Albumin 3.2 L Urine Color Straw Urine Appearance Clear Urine pH 6.0 Ur Specific [place] 1.028 Urine Protein Negative Urine Glucose (UA) 3+ H Urine Ketones Negative Urine Blood 1+ H Urine Nitrite Negative Urine Bilirubin Negative Urine Urobilinogen Negative Ur Leukocyte Esterase Negative Urine WBC (Auto) 1 Urine RBC (Auto) <1 06/05/18 17:10 RBC 4.39 MCV 88.1 MCHC 35.1 RDW 12.4 MPV 8.5 - Medications Given in the ED: ED Medications Discontinued Medications Generic Name Dose Route Start Last Admin Trade Name Freq PRN Reason Stop Dose Admin Acetaminophen 1,000 mg 06/05/18 16:46 06/05/18 17:40 Ofirmev Injection - IVPB 06/05/18 16:47 1,000 mg ONCE ONE Administration Sodium Chloride 1,000 mls @ 1,000 mls/hr 06/05/18 16:25 06/05/18 17:40 Normal Saline - IV 06/05/18 17:24 1,000 mls/hr ASDIR STA Administration Sodium Chloride 1,000 mls @ 1,000 mls/hr 06/05/18 18:22 06/05/18 18:26 Normal Saline - IV 06/05/18 19:21 1,000 mls/hr ASDIR STA Administration Meclizine HCl 25 mg 06/05/18 16:18 06/05/18 17:40 Antivert - PO 06/05/18 16:19 25 mg ONCE ONE Administration Medical Decision Making - Medical Decision Making 06/05/18 21:39 Received signout from from Dr López. Patient is 47M here today with headache concerning for SAH. CT normal. Neuro exam normal. History reason for concern for possible herald bleed. Multiple attempts at LP by 3 different providers unsuccessful. Patient's headache improved with tylenol and meclizine, but not resolved. Labs reviewed: Laboratory Tests 06/05/18 06/05/18 17:10 17:10 WBC 8.4 Hgb 13.6 Plt Count 174 Random Glucose 305 H* D AST 61 H D ALT 144 H D Alkaline Phosphatase 154 H Troponin I < 0.02 CBC normal. Patient diabetic. LFTs elevated, denies etoh. US ordered. CTA head pending. 06/05/18 23:10 CTA negative for aneurysm or other acute pathologies. 06/05/18 23:[address] Summers. Obs admission. *DC/Admit/Observation/Transfer Diagnosis at time of Disposition: Headache - Discharge Dispostion Disposition: HOME Condition at time of disposition: Stable Decision to Admit order: Yes - Referrals Referrals: Jones uLcas MD [Staff Physician] - John Hoyt MD [Primary Care Provider] - - Patient Instructions Printed Discharge Instructions: DI for Vertigo - Post Discharge Activity
--- NOTE | 2018-06-06 01:14 | HP ---
CHIEF COMPLAINT: headache, weakness PCP: HISTORY OF PRESENT ILLNESS: 47 y/o male with PMH sinusitis, presents with complaint of headache. States headache began Wednesday morning at [employer] with family. He states initially he felt weakness and sudden onset headache localized to b/l frontal lobes rated initially 7/10 intensity and progressed to 9/10 at its worst. Admits photophobia , dizzyness (he felt he was spinning), and neck pain associated with headache. Denies prior occurrence of these symptoms. Attempted to take two unknown dosage Tylenol for the headache which was mildly palliative. States he also has been experiencing weakness, dizzyness, malaise, polydypsia, polyuria, polyphagia for the past three months. Does not have a PCP and denies history of DM. Denies fevers, chills, shortness of breath, chest pain, palpitations, nausea, vomiting , diarrhea, constipation, trauma, falls, loss of consciousness. ER course was notable for: (1) Ofirmev, meclizine, IV NS (2) Attempt at lumbar puncture, unsuccessful. (3) CT head, CTA, abdominal US Recent Travel: PAST MEDICAL HISTORY: sinusitis PAST SURGICAL HISTORY: Social History: Smoking: admits 1-2 cigarettes/ week Alcohol: denies Drugs: denies Family History: Allergies No Known Allergies Allergy (Verified 06/05/18 15:49) HOME MEDICATIONS: Home Medications Medication Instructions Recorded NK [No Known Home Medication] 06/05/18 REVIEW OF SYSTEMS As per [facility] PHYSICAL EXAMINATION Vital Signs - 24 hr 06/05/18 06/05/18 06/06/18 15:46 20:19 00:13 Temperature 98.4 F 98.0 F Pulse Rate 88 Pulse Rate [ 66 67 Radial] Respiratory 18 20 16 Rate Blood Pressure 128/75 Blood Pressure 126/70 118/74 [Right Arm] O2 Sat by Pulse 99 98 Oximetry (%) GENERAL: Awake, alert, and fully oriented, in no mild distress. HEAD: Normal with no signs of trauma. EYES: Pupils equal, round and reactive to light, extraocular movements intact, sclera anicteric, conjunctiva clear. No nystagmus. EARS, NOSE, THROAT: Oropharynx clear without exudates. Moist mucous membranes. NECK: Normal range of motion, supple without lymphadenopathy. LUNGS: Breath sounds equal, clear to auscultation bilaterally. No wheezes, and no crackles. HEART: Regular rate and rhythm, normal S1 and S2 without murmur, rub or gallop. ABDOMEN: Soft, nontender, not distended, normoactive bowel sounds, no guarding, no rebound, no masses. No hepatomegaly or splenomegaly. MUSCULOSKELETAL: Normal range of motion at all joints. EXTREMITIES: 2+ pulses, warm, well-perfused. No peripheral edema. NEUROLOGICAL: Cranial nerves II-XII intact. Normal speech. Normal gait. PSYCHIATRIC: Cooperative. Appropriate mood and affect. Laboratory Results - last 24 hr 06/05/18 06/05/18 06/05/18 17:10 17:10 17:36 WBC 8.4 RBC 4.39 Hgb 13.6 Hct 38.7 D MCV 88.1 MCH 30.9 MCHC 35.1 RDW 12.4 Plt Count 174 MPV 8.5 Sodium 139 Potassium 4.1 Chloride 105 Carbon Dioxide 26 Anion Gap 8 BUN 15 Creatinine 1.2 Creat Clearance w eGFR > 60 Random Glucose 305 H* D Calcium 8.3 L Total Bilirubin 0.6 AST 61 H D ALT 144 H D Alkaline Phosphatase 154 H Creatine Kinase 77 Troponin I < 0.02 Total Protein 7.2 Albumin 3.2 L Urine Color Straw Urine Appearance Clear Urine pH 6.0 Ur Specific [place] 1.028 Urine Protein Negative Urine Glucose (UA) 3+ H Urine Ketones Negative Urine Blood 1+ H Urine Nitrite Negative Urine Bilirubin Negative Urine Urobilinogen Negative Ur Leukocyte Esterase Negative Urine WBC (Auto) 1 Urine RBC (Auto) <1 ASSESSMENT/PLAN: 47 y/o male with PMH sinusitis presents with chief complaint of headache since Wednesday. Headache -Subarrachnoid hemorrhage vs. migrane vs ?mass -CT head showed no acute hemorrhage, or intracranal process -CTA showed no occlussions, aneurysms, or stenosis -LP was attempted in ED but was unsuccessful. Consider IR consult for LP -Neurology consult requested -f/u MRI brain Elevated transaminase -AST 61, ALT 144, Alkaline phosphatase 154 -Abdominal US showed mild fatty liver with 17.4cm liver -Denies history of alcohol use -F/U Hepatitis A/B/C studies -F/U lipid studies -Elevated blood glucose -Admits polydypsia, polyuria, polyphagia for past 3 months -F/U Hb A1c -Begin insulin sliding scale -Start patient on long acting insulin -Fingerstick blood glucose monitoring Prophylaxis - Heparin 5000u subq TID FEN -No IV fluids indicated -No electrolyte abnormalities -NPO Advance directives: Full code Disposition: Observation Case discussed with bat person attending Visit type - Emergency Visit Emergency Visit: Yes ED Registration Date: 06/05/18 Care time: The patient presented to the Emergency Department on the above date and was hospitalized for further evaluation of their emergent condition. - New Patient This patient is new to me today: Yes Date on this admission: 06/06/18 - Critical Care Critical Care patient: No Hospitalist Screening - Colonoscopy Questionnaire Colonoscopy Questionnaire: Colonoscopy Questionnaire - Patient: 50 - 75 years old and never had a screening colonoscopy: Unknown History of colon or rectal polyps, or CA: Unknown History of IBD, Crohn's disease or UC: Unknown History of abdominal radiation therapy as a child: Unknown - Relative: 1 with colon or rectal CA, or polyps at age 60 or younger: Unknown Colon or rectal CA diagnosed at age 45 or younger: Unknown Multiple relatives with colon or rectal CA: Unknown - Outcome: Screening Result: Negative Screen
--- NOTE | 2018-06-06 04:51 | PN ---
Teaching Attending Note Name of Resident: Beck Solis ATTENDING PHYSICIAN STATEMENT I saw and evaluated the patient. I reviewed the resident's note and discussed the case with the resident. I agree with the resident's findings and plan as documented. SUBJECTIVE: OBJECTIVE: ASSESSMENT AND PLAN: this is a 47 y/o male with PMH sinusitis presents with chief complaint of headache since Wednesday was found to have elevated blood glucose Headache Migrane vs SAH -CT head showed no acute hemorrhage, or intracranal process -CTA showed no occlussions, aneurysms, or stenosis -LP was attempted in ED but was unsuccessful. Consider IR consult for LP -Neurology consult requested -MRI brain Elevated transaminase possible 2/2 to diabetes -AST 61, ALT 144, Alkaline phosphatase 154 -Abdominal US showed mild fatty liver with 17.4cm liver - GI consult Elevated blood glucose -Admits polydypsia, polyuria, polyphagia for past 3 months -F/U Hb A1c Insulin sliding scale start detmir
[2018-06-06] MEDS: HEPARIN NA (PORCINE) 5,000 UNITS/ML 1ML VIAL SQ SCH ×2 (06:03→13:51)
[2018-06-06] MEDS ORDERED: INSULIN SLIDING SCALE (NOVOLOG) 1 VIAL SQ SCH ×2 (07:00→08:28)
[2018-06-06 09:26] LABS: CHOLESTEROL 159 mg/dL (50-200); HDL CHOLESTEROL 35 mg/dL (40-60); TRIGLYCERIDES 233 mg/dL (35-160)
[2018-06-06 09:27] LABS: ALBUMIN 3.3 g/dl (3.4-5.0); ANION GAP 6 (8-16); BLOOD UREA NITROGEN 10 mg/dL (7-18); CALCIUM 8.4 mg/dL (8.5-10.1); CHLORIDE 107 mmol/L (98-107); CO2 27 mmol/L (21-32); CREATININE 0.8 mg/dL (0.7-1.3); GLUCOSE,RANDOM 182 mg/dL (74-106); PHOSPHOROUS 2.3 mg/dL (2.5-4.9); POTASSIUM 3.6 mmol/L (3.5-5.1); SGOT/AST 61 U/L (15-37); SGPT/ALT 138 U/L (12-78); SODIUM 140 mmol/L (136-145)
[2018-06-06 09:29] LABS: ALK PHOS 117 U/L (45-117); BILIRUBIN,TOTAL 0.8 mg/dL (0.2-1.0); TOT PROT 7.3 g/dl (6.4-8.2)
--- NOTE | 2018-06-06 09:30 | CONSULT ---
Consult - text type - Consultation Consultation Note: Neurology CHIEF COMPLAINT: headache, weakness HISTORY OF PRESENT ILLNESS: 47 y/o male with PMH sinusitis, presented with complaint of headache. Stated headache began Wednesday morning at [facility] with family. He states initially he felt weakness and sudden onset headache localized to b/l frontal lobes rated initially 7/10 intensity and progressed to 9/10 at its worst. Admited to photophobia, dizzyness (he felt he was spinning), and neck pain associated with headache. Denied prior occurrence of these symptoms. Attempted to take two unknown dosage Tylenol for the headache which was mildly palliative. Stated he also has been experiencing weakness, dizzyness, malaise, polydypsia, polyuria, polyphagia for the past three months. Does not have a PCP and denies history of DM. In ER, there was concern for SAH. CT head completed and no acute changes. CTA completed and no vascular defects. Multiple LPs attempted, unsuccessful. Patient 's symptoms improved with medication and reports being at baseline this AM with some slight headache. However, much improved. PAST MEDICAL HISTORY: sinusitis Social History: Smoking: admits 1-2 cigarettes/ week Alcohol: denies Drugs: denies Family History: Allergies No Known Allergies Allergy (Verified 06/05/18 15:49) HOME MEDICATIONS: Home Medications Medication Instructions Recorded NK [No Known Home Medication] 06/05/18 REVIEW OF SYSTEMS As per [facility] PHYSICAL EXAMINATION Vital Signs - 24 hr 06/05/18 06/05/18 06/06/18 15:46 20:19 00:13 Temperature 98.4 F 98.0 F Pulse Rate 88 Pulse Rate [ 66 67 Radial] Respiratory 18 20 16 Rate Blood Pressure 128/75 Blood Pressure 126/70 118/74 [Right Arm] O2 Sat by Pulse 99 98 Oximetry (%) GENERAL: Awake, alert, and fully oriented, in no mild distress. HEAD: Normal with no signs of trauma. EYES: Pupils equal, round and reactive to light, extraocular movements intact, sclera anicteric, conjunctiva clear. No nystagmus. EARS, NOSE, THROAT: Oropharynx clear without exudates. Moist mucous membranes. NECK: Normal range of motion, supple without lymphadenopathy. LUNGS: Breath sounds equal, clear to auscultation bilaterally. No wheezes, and no crackles. HEART: Regular rate and rhythm, normal S1 and S2 without murmur, rub or gallop. ABDOMEN: Soft, nontender, not distended, normoactive bowel sounds, no guarding, no rebound, no masses. No hepatomegaly or splenomegaly. MUSCULOSKELETAL: Normal range of motion at all joints. EXTREMITIES: 2+ pulses, warm, well-perfused. No peripheral edema. NEUROLOGICAL: Cranial nerves II-XII intact. Normal speech. Finger to nose intact, sensory equal. PSYCHIATRIC: Cooperative. Appropriate mood and affect. Laboratory Results - last 24 hr 06/05/18 06/05/18 06/05/18 17:10 17:10 17:36 WBC 8.4 RBC 4.39 Hgb 13.6 Hct 38.7 D MCV 88.1 MCH 30.9 MCHC 35.1 RDW 12.4 Plt Count 174 MPV 8.5 Sodium 139 Potassium 4.1 Chloride 105 Carbon Dioxide 26 Anion Gap 8 BUN 15 Creatinine 1.2 Creat Clearance w eGFR > 60 Random Glucose 305 H* D Calcium 8.3 L Total Bilirubin 0.6 AST 61 H D ALT 144 H D Alkaline Phosphatase 154 H Creatine Kinase 77 Troponin I < 0.02 Total Protein 7.2 Albumin 3.2 L Urine Color Straw Urine Appearance Clear Urine pH 6.0 Ur Specific [place] 1.028 Urine Protein Negative Urine Glucose (UA) 3+ H Urine Ketones Negative Urine Blood 1+ H Urine Nitrite Negative Urine Bilirubin Negative Urine Urobilinogen Negative Ur Leukocyte Esterase Negative Urine WBC (Auto) 1 Urine RBC (Auto) <1 CT head reviewed CTA reviewed ASSESSMENT/PLAN: 47 y/o male with PMH sinusitis, presented with complaint of severe headache. In ER, there was concern for SAH. CT head completed and no acute changes. CTA completed and no vascular defects. Multiple LPs attempted, unsuccessful. Patient 's symptoms improved with medication and reports being at baseline this AM with some slight headache. However, much improved. -Do not have suspicion for SAH (1. CT negative and is specific for acute blood, 2. symptoms improved 3. VSS stable and not consistent with cerebral bleed) -discontinued MRI brain, no focal deficits -Does not require repeat LP attempts -Can give fioricet as needed -Follow up abdominal work up -Follow up hyperglycemia -Increased hydration -Avoid migraine triggers -Meclezine if needed for dizzyness though no longer occuring
[2018-06-06 10:14] LABS: BASO % 0.5 % (0-2.0); EOS % 2.2 % (0-4.5); HEMOGLOBIN 14.4 GM/dL (11.7-16.9); LYMPH % 30.7 % (8-40); MCHC 35.1 g/dl (32.0-35.9); MEAN CELL VOLUME 88.5 fl (80-96); MEAN PLT VOLUME 9.2 fl (7.5-11.1); MONO % 5.4 % (3.8-10.2); NEUT % 61.2 % (42.8-82.8); PLATELET COUNT 173 K/MM3 (134-434); RBC 4.64 M/mm3 (4.00-5.60); RDW 12.2 % (11.9-15.9); WHITE BLOOD COUNT 8.5 K/mm3 (4.0-10.0)
[2018-06-06] MEDS ORDERED: ACETAMINOPHEN/CAFFEINE/BUTALBITAL 1 TAB PO ONE (10:15)
[2018-06-06] MEDS ORDERED: NAPH,MB-DB/K PH,MBDB POWDER PACKET PO SCH (10:15)
[2018-06-06] MEDS ORDERED: INSULIN (NOVOLOG) ASPART 100 UNITS/ML 10ML VIAL ONE (11:34)
[2018-06-06 14:22] VITALS: BP 120/78; PULSE 70; TEMP 98.2
--- NOTE | 2018-06-06 15:41 | DS ---
Physical Exam: SUBJECTIVE: Patient seen and examined. States his head ache is improved since admission, he has intermittent dizziness where the room spins. But, improved. OBJECTIVE: Vital Signs Period Temp Pulse Resp BP Sys/Pedroza Pulse Ox Last 24 Hr 97.9 F-99.0 F 65-88 16-20 118-135/70-87 97-100 Pe Neuro: alert, awake, cn 2-12intact Pulm: CTAB CV: S1 s2 rrr no mrg Abd: s nt nd + bs Ext: no le edema Laboratory Results - last 24 hr 06/05/18 06/05/18 06/05/18 17:10 17:10 17:36 WBC 8.4 RBC 4.39 Hgb 13.6 Hct 38.7 D MCV 88.1 MCH 30.9 MCHC 35.1 RDW 12.4 Plt Count 174 MPV 8.5 Absolute Neuts (auto) Neutrophils % Lymphocytes % Monocytes % Eosinophils % Basophils % Nucleated RBC % Sodium 139 Potassium 4.1 Chloride 105 Carbon Dioxide 26 Anion Gap 8 BUN 15 Creatinine 1.2 Creat Clearance w eGFR > 60 POC Glucometer Random Glucose 305 H* D Hemoglobin A1c % Calcium 8.3 L Phosphorus Magnesium Total Bilirubin 0.6 AST 61 H D ALT 144 H D Alkaline Phosphatase 154 H Creatine Kinase 77 Troponin I < 0.02 Total Protein 7.2 Albumin 3.2 L Triglycerides Cholesterol Total LDL Cholesterol HDL Cholesterol Urine Color Straw Urine Appearance Clear Urine pH 6.0 Ur Specific [place] 1.028 Urine Protein Negative Urine Glucose (UA) 3+ H Urine Ketones Negative Urine Blood 1+ H Urine Nitrite Negative Urine Bilirubin Negative Urine Urobilinogen Negative Ur Leukocyte Esterase Negative Urine WBC (Auto) 1 Urine RBC (Auto) <1 06/06/18 06/06/18 06/06/18 05:45 06:00 08:44 WBC 8.5 RBC 4.64 Hgb 14.4 Hct 41.0 MCV 88.5 MCH 31.0 MCHC 35.1 RDW 12.2 Plt Count 173 MPV 9.2 Absolute Neuts (auto) 5.2 Neutrophils % 61.2 D Lymphocytes % 30.7 D Monocytes % 5.4 Eosinophils % 2.2 D Basophils % 0.5 Nucleated RBC % 0 Sodium Potassium Chloride Carbon Dioxide Anion Gap BUN Creatinine Creat Clearance w eGFR POC Glucometer 215 Random Glucose Hemoglobin A1c % 11.1 H Calcium Phosphorus Magnesium Total Bilirubin AST ALT Alkaline Phosphatase Creatine Kinase Troponin I Total Protein Albumin Triglycerides Cholesterol Total LDL Cholesterol HDL Cholesterol Urine Color Urine Appearance Urine pH Ur Specific [place] Urine Protein Urine Glucose (UA) Urine Ketones Urine Blood Urine Nitrite Urine Bilirubin Urine Urobilinogen Ur Leukocyte Esterase Urine WBC (Auto) Urine RBC (Auto) 06/06/18 06/06/18 06/06/18 08:44 08:44 08:44 WBC RBC Hgb Hct MCV MCH MCHC RDW Plt Count MPV Absolute Neuts (auto) Neutrophils % Lymphocytes % Monocytes % Eosinophils % Basophils % Nucleated RBC % Sodium 140 Potassium 3.6 Chloride 107 Carbon Dioxide 27 Anion Gap 6 L BUN 10 Creatinine 0.8 Creat Clearance w eGFR > 60 POC Glucometer Random Glucose 182 H D Hemoglobin A1c % Cancelled Calcium 8.4 L Phosphorus 2.3 L Magnesium 2.0 Total Bilirubin 0.8 AST 61 H ALT 138 H Alkaline Phosphatase 117 D Creatine Kinase Troponin I Total Protein 7.3 Albumin 3.3 L Triglycerides 233 H Cholesterol 159 Total LDL Cholesterol 101 H HDL Cholesterol 35 L Urine Color Urine Appearance Urine pH Ur Specific [place] Urine Protein Urine Glucose (UA) Urine Ketones Urine Blood Urine Nitrite Urine Bilirubin Urine Urobilinogen Ur Leukocyte Esterase Urine WBC (Auto) Urine RBC (Auto) HOSPITAL COURSE: Date of Admission:06/05/18 Date of Discharge: 06/06/18 Minutes to complete discharge: 37 Discharge Summary Reason For Visit: HEADACHE Hospital Course: Hospital Course: 47 year old male with PMH sinusitis, presented with complaint of headache x2 days to frontal lobe and temporal lobe and neck and dizziness. Pt took Tylenol and tried to sleep Wednesday without abating of symptoms. He also had been experiencing weakness, dizzyness, malaise, polydypsia, polyuria , polyphagia for the past three months. Does not have a PCP and denies history of DM. a/p: 47 y/o male with PMH sinusitis presents with chief complaint of headache since Wednesday was found to have elevated blood glucose 1. Headache - Migrane vs SAH - CT head showed no acute hemorrhage, or intracranal process - CTA showed no occlussions, aneurysms, or stenosis - No need for brain MRI per neurology - Home with Fiorcet PRN and meclazine 2. Elevated transaminase possible 2/2 to diabetes - Down trended on dischage - Abdominal US showed mild fatty liver - Outpt GI follow up 3. DM II diagnosed here - Hgb a1c 11.1 - Started insulin regemin here, ISS with 10 units HS of levemir - Outpt PCP appt made with Dr. Read 06/08 12:30 - [facility] services enlisted - Pt teaching conducted along with diet education Dispo: - Home with above plan, meds and follow up Condition: Stable - Instructions Diet, Activity, Other Instructions: Please return to the ED for any new, persistent, or worsening symptoms. Follow up with your PCP as scheduled (appt made for you Dr. Read 06/08/2018 12:30pm ) Take new medications as directed Take insulin as directed and check your sugar before meals and at bedside Referrals: Erich Kumar MD [Staff Physician] - 06/08/18 12:30 pm Russel Suarez MD [Staff Physician] - 1 Week Jones Lucas MD [Staff Physician] - Disposition: [facility]NS/HOME HEALTH CARE - Home Medications Comprehensive Discharge Medication List: Ambulatory Orders Acetaminophen/Caffeine/Butalb [Fioricet -] 1 tab PO Q6H PRN #28 tablet MDD 4 Alcohol Antiseptic Pads [Alcohol Prep Pads] 1 each TP ACHS #999 med..pad Insulin Detemir [Levemir Flextouch] 10 unit SQ HS #1 insuln.pen 06/06/18 Insulin Sliding Scale [Novolog Vial Sliding Scale -] See Protocol SQ ACHS #1 pen 06/06/18 Lancets/Blood Glucose Strips [Fora [id number] Strp-Lnct] 1 each ACHS # 999 combo..pkg 06/06/18 Meclizine HCl [Antivert -] 12.5 mg PO TID PRN #21 tablet 06/06/18 Miscellaneous Medical Supply [Glucometer Device] 1 each SQ ASDIR #1 kit This patient is new to me today: Yes Date on this admission: 06/06/18 Emergency Visit: Yes ED Registration Date: 06/05/18 Care time: The patient presented to the Emergency Department on the above date and was hospitalized for further evaluation of their emergent condition. Critical Care patient: No - Discharge Referral Referred to [facility] Med P.C.: Yes Physician Referral: Erich Calzada MD ([facility])
[2018-06-06] MEDS ORDERED: INSULIN (LEVEMIR) 100 UNITS/ML UNITS SQ SCH (22:00)
[2018-06-08 00:07] LABS: HBSAG SCREEN Negative (Negative); HEP A AB, IGM Negative (Negative); HEP B CORE AB, TOT Negative (Negative)
== END 2018-06-06 14:42 | disposition home health service (06) ==
LOC: JER 14:56 → JERBED 23:41 → J8W 06-06 01:21
PROVIDERS: ADMIT Internal Medicine; ATTEND Nurse Practitioner Acute Care
PROC: 3E033NZ Introduction of Analgesics, Hypnotics, Sedatives into Peripheral Vein, Percutaneous Approach (ICD-10-PCS; principal; 2018-06-05)
PROC: 3E013VG Introduction of Insulin into Subcutaneous Tissue, Percutaneous Approach (ICD-10-PCS; 2018-06-05)
PROC: 3E0337Z Introduction of Electrolytic and Water Balance Substance into Peripheral Vein, Percutaneous Approach (ICD-10-PCS; 2018-06-05)
DX: R51 Headache (principal); R74.0 Nonspecific elevation of levels of transaminase and lactic acid dehydrogenase [LDH]; E11.65 Type 2 diabetes mellitus with hyperglycemia
CPT/HCPCS: 36415; 70450-TC; 70496-TC; 76705-TC; 80053; 80061; 81003; 81015; 82550; 82962; 83036; 83721; 83735; 84100; 84484; 85025; 85027; 86704; 86706; 86708; 87340; 87522; 96361; 96372; 96374; 99284-25; G0378; J0131; J1644; J7030

== ENCOUNTER 2021-01-27 14:05 | Emergency (ER) | payer OTHER ==
[2021-01-27 14:47] VITALS: BP 122/77; PULSE 101; TEMP 101.1; BMI 29.9
[2021-01-27] MEDS ORDERED: IBUPROFEN 600 MG TABLET (FP) PO ONE ×2 (15:05→15:22)
== END 2021-01-27 16:35 | disposition home or self-care (01) ==
LOC: JER 14:05
DX: U07.1 COVID-19 (principal); R50.9 Fever, unspecified; R05 Cough
CPT/HCPCS: 99283-25; C9803; U0003

== ENCOUNTER 2021-01-28 10:27 | Emergency (ER) | payer OTHER ==
[2021-01-28] MEDS ORDERED: BAMLANIVIMAB 700 MG, ETESEVIMAB 1,400 MG in SODIUM CHLORIDE 250 ML IVPB ONE (10:28)
[2021-01-28 10:45] VITALS: BMI 30.9
[2021-01-28 11:16] LABS: BASO % 0.3 % (0-2.0); EOS % 0.1 % (0-4.5); HEMATOCRIT 42.9 % (35.4-49); HEMOGLOBIN 15.2 GM/dL (11.7-16.9); LYMPH % 16.9 % (8-40); MCH 30.7 pg (25.7-33.7); MCHC 35.5 g/dl (32.0-35.9); MEAN CELL VOLUME 86.4 fl (80-96); MEAN PLT VOLUME 8.5 fl (7.5-11.1); MONO % 5.3 % (3.8-10.2); NEUT % 77.4 % (42.8-82.8); PLATELET COUNT 108 K/MM3 (134-434); RBC 4.96 M/mm3 (4.00-5.60); RDW 12.2 % (11.9-15.9); WHITE BLOOD COUNT 4.8 K/mm3 (4.0-10.0)
[2021-01-28 11:48] LABS: ALBUMIN 3.2 g/dl (3.4-5.0); CALCIUM 8.6 mg/dL (8.5-10.1)
[2021-01-28 11:49] LABS: BLOOD UREA NITROGEN 10.3 mg/dL (7-18); POTASSIUM 4.1 mmol/L (3.5-5.1)
[2021-01-28] MEDS ORDERED: ACETAMINOPHEN/CAFFEINE/BUTALBITAL 1 TAB PO ONE (11:49)
[2021-01-28 11:54] LABS: BILIRUBIN,TOTAL 0.6 mg/dL (0.2-1); TOT PROT 7.4 g/dl (6.4-8.2)
[2021-01-28] MEDS ORDERED: METOCLOPRAMIDE HCL INJECTION 10 MG/2 ML VIAL IVPUSH ONE (12:00)
[2021-01-28] MEDS ORDERED: METOCLOPRAMIDE HCL INJECTION 10 MG/2 ML VIAL ONE (12:01)
[2021-01-28] MEDS ORDERED: ACETAMINOPHEN/CAFFEINE/BUTALBITAL 1 TAB ONE (12:36)
[2021-01-28 14:43] VITALS: BP 126/80; PULSE 85; TEMP 98.3
== END 2021-01-28 16:08 | disposition home or self-care (01) ==
LOC: JCOVINFU 10:27
PROC: 3E03329 Introduction of Other Anti-infective into Peripheral Vein, Percutaneous Approach (ICD-10-PCS; principal; 2021-01-28)
PROC: 3E033GC Introduction of Other Therapeutic Substance into Peripheral Vein, Percutaneous Approach (ICD-10-PCS; 2021-01-28)
DX: U07.1 COVID-19 (principal)
CPT/HCPCS: 36415; 70450-TC; 71046-TC-FY; 80053; 85025; 99285-25; M0239; Q0239; Q0245

== ENCOUNTER 2023-12-23 17:32 | Emergency (ER) | payer OTHER ==
[2023-12-23 17:38] VITALS: BMI 29.9
[2023-12-23] MEDS ORDERED: ACETAMINOPHEN 500 MG TABLET (FP) ONE (18:36)
[2023-12-23] MEDS ORDERED: KETOROLAC TROMETHAMINE 30 MG/1 ML VIAL ONE (18:36)
[2023-12-23] MEDS: KETOROLAC TROMETHAMINE 30 MG/1 ML VIAL IM ONE (18:41)
[2023-12-23] MEDS: ACETAMINOPHEN 500 MG TABLET (FP) PO ONE (18:41)
[2023-12-23 19:02] VITALS: BP 146/65; RESP 18; TEMP 99.9
[2023-12-23 19:03] VITALS: PULSE 96
== END 2023-12-23 19:04 | disposition home or self-care (01) ==
LOC: JERFT 17:32
PROC: 3E0233Z Introduction of Anti-inflammatory into Muscle, Percutaneous Approach (ICD-10-PCS; principal; 2023-12-23)
DX: R09.81 Nasal congestion (principal); M79.18 Myalgia, other site; J11.1 Influenza due to unidentified influenza virus with other respiratory manifestations; J32.9 Chronic sinusitis, unspecified; Z20.822 Contact with and (suspected) exposure to COVID-19
CPT/HCPCS: 0241U-QW; 99284-25